=== PATIENT | female | born 1940 | race Caucasian/White ===

== ENCOUNTER → 2016-09-28 | Outpatient (CLI) | payer OTHER ==
[~2016-09-28] MED LIST: AMT50 PO; B-CO1CAP3 PO; CHOL100010 PO; COEN100C11 PO; DICL-201 PO; GABA-113 PO; LEVO25TA PO; LISI-461 PO; METF1TAB53 PO; METO1TAB69 PO; MULT-506 PO; ROSU40TA PO; TRAM-10 PO
--- NOTE | 2016-09-28 13:52 | DIAGNOSTIC IMAGING REPORT ---
ABDOMEN AND PELVIS CT WITH IV AND ORAL CONTRAST CT DOSE: 1202.72 mGy.cm HISTORY: MALT LYMPHOMA TECHNIQUE: Multiaxial CT images of the abdomen and pelvis were performed following the use of intravenous and oral contrast. COMPARISON STUDY: Abdomen and pelvis CT 04/21/2016. FINDINGS: No suspicious lytic or blastic osseous lesions. The liver, gallbladder, pancreas, spleen, and adrenal glands are unremarkable. The kidneys enhance normally. No hydronephrosis. Bladder is not well-distended but appears unremarkable. The uterus is surgically absent. No bowel wall thickening or obstruction. Extensive sigmoid diverticulosis. Stable prominent mesenteric and ileocolic lymph nodes. Subcentimeter retroperitoneal lymph nodes remain stable. Dominant ileocolic lymph node on image 196 measures 1 cm. IMPRESSION: No change in the prominent mesenteric and ileocolic lymph nodes as described above. No progressive lymphadenopathy within the abdomen or pelvis. Electronically signed by: Cruz Hines M.D. 09/28/2016 1:51 PM Dictated Date/Time: 09/28/2016 1:44 PM
--- NOTE | 2016-09-28 13:54 | DIAGNOSTIC IMAGING REPORT ---
CHEST CT WITH CONTRAST CT DOSE: HISTORY: Lymphoma MALT LYMPHOMA TECHNIQUE: Multiaxial CT images of the chest were performed following the intravenous administration of contrast. COMPARISON: 04/21/2016 FINDINGS: Minimal pulmonary micronodular area. This is unchanged and stable. Lungs otherwise are considered clear. Hilar and mediastinal regions show several small superior mediastinal nodes in left considered stable. There is no evidence for new interval or progressive change. Postbiopsy changes to the right breast are noted and appear unchanged. IMPRESSION: Stable evaluation of the chest. No evidence for new or interval process compared to the prior exam. Electronically signed by: Dinesh Fonseca M.D. 09/28/2016 1:53 PM Dictated Date/Time: 09/28/2016 1:49 PM
== END | disposition home or self-care (01) ==
LOC: C.CTS 11:09
PROVIDERS: ATTEND Internal Medicine Hematology & Oncology
DX: C88.4 Extranodal marginal zone B-cell lymphoma of mucosa-associated lymphoid tissue [MALT-lymphoma] (principal)

== ENCOUNTER → 2017-01-29 | Outpatient (CLI) | payer OTHER ==
[~2017-01-29] MED LIST changes: +METO100T44 PO; -METO1TAB69 PO; +OPTIRAY 320 IV PRN
--- NOTE | 2017-01-29 13:21 | DIAGNOSTIC IMAGING REPORT ---
CHEST CT WITH CONTRAST CT DOSE: 1173.68 mGy.cm HISTORY: Breast carcinoma lymphoma TECHNIQUE: 09/28/2016 COMPARISON: 09/28/2016 FINDINGS: Stable micronodularity right hemithorax. No evidence for new or interval process. Stable nodular density left midlung unaltered from the prior study. No significant mediastinal or hilar adenopathy. Thoracic aorta is normal in course and caliber. IMPRESSION: Unchanged evaluation of the chest. Stable pulmonary nodularity. No evidence for new interval or progressive disease Electronically signed by: Dinesh Fonseca M.D. 01/29/2017 1:20 PM Dictated Date/Time: 01/29/2017 1:16 PM
--- NOTE | 2017-01-29 14:17 | DIAGNOSTIC IMAGING REPORT ---
ABDOMEN AND PELVIS CT WITH IV AND ORAL CONTRAST CT DOSE: HISTORY: Chest pain lymphoma TECHNIQUE: Multiaxial CT images of the abdomen and pelvis were performed following the use of intravenous and oral contrast. COMPARISON STUDY: 09/28/2016 FINDINGS: Lung bases are considered clear. Liver spleen and pancreas appear unremarkable. Findings of mild mesenteric vitor change as well as ileocolic vitor change appear stable. There is no evidence for new interval or progressive vitor abnormality. There is no evidence for bulky vitor pathology. There are findings of chronic sigmoid diverticulosis. There is no evidence for acute diverticulitis. The kidneys are negative for hydronephrosis. Liver spleen pancreas are again remain unremarkable. IMPRESSION: Stable evaluation of the abdomen and pelvis. Adenopathy within the mesentery and ileocolic regions is stable to perhaps minimally improved. Electronically signed by: Dinesh Fonseca M.D. 01/29/2017 2:15 PM Dictated Date/Time: 01/29/2017 2:11 PM
== END | disposition home or self-care (01) ==
LOC: C.CTS 10:12
PROVIDERS: ATTEND Internal Medicine Hematology & Oncology
DX: C88.4 Extranodal marginal zone B-cell lymphoma of mucosa-associated lymphoid tissue [MALT-lymphoma] (principal)